=== PATIENT | male | born 1975 ===

== ENCOUNTER 2017-02-03 07:34 | Emergency (ER) | payer OTHER ==
[2017-02-03 07:46] VITALS: O2SAT 99
[2017-02-03] MEDS ORDERED: Albuterol 0.083% Inhal Sol (2.5 mg/3 mL) UD INH STA (08:08)
--- NOTE | 2017-02-03 08:08 | C.PDOC ---
History Of Present Illness 41 year old patient, with a past medical history of asthma, presents to the ED complaining of sore throat, neck pain and cough for the past week. Patient also complains of a subjective fever. Patient states he had limited relief with MDI. He took no medications this morning. Patient also denies nausea, vomiting, diarrhea, or any other associated symptoms. 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 SUBJ FEVER. HO ASTHMA, LIMITED RELIEF W MDI. NO MEDS TAKEN THIS MORNING. NO OTHER ASSOC SX EXAM NARD NONTOXIC HEENT PHARYNX CLEAR; NOSE CLEAR LUNGS NEG REMAINDER NEG Time Seen by Provider: 02/03/17 07:55 Chief Complaint (Nursing): Cough, Cold, Congestion History Per: Patient History/Exam Limitations: no limitations Onset/Duration Of Symptoms: Other (1 week) Current Symptoms Are (Timing): Still Present Location Of Pain: Throat, Other (neck) Sick Contacts (Context): None Associated Symptoms: Fever, Sore Throat, Cough, Neck Pain Ear Symptoms: Bilateral: None Severity: Mild Pain Scale Rating Of: 3 Recent travel outside of the [place]: No Past Medical History Reviewed: Historical Data, Nursing Documentation, Vital Signs Vital Signs: Last Vital Signs Temp 98.9 F 02/03/17 07:44 Pulse 87 02/03/17 08:49 Resp 18 02/03/17 07:44 BP 138/78 02/03/17 07:44 Pulse Ox 99 02/03/17 08:47 Family History: States: Unknown Family Hx - Social History Hx Alcohol Use: Yes Hx Substance Use: No - Immunization History Hx Tetanus Toxoid Vaccination: No Hx Influenza Vaccination: No Hx Pneumococcal Vaccination: No Review Of Systems Except As Marked, All Systems Reviewed And Found Negative. Constitutional: Positive for: Fever ENT: Positive for: Throat Pain Respiratory: Positive for: Cough Gastrointestinal: Negative for: Nausea, Vomiting, Diarrhea Musculoskeletal: Positive for: Neck Pain Physical Exam - Physical Exam Appears: Non-toxic, No Acute Distress Skin: Warm, Dry Head: Atraumatic, Normacephalic Eye(s): bilateral: Normal Inspection, EOMI Ear(s): Bilateral: Normal Nose: Normal, No Discharge Throat: Normal, No Erythema, No Exudate Neck: Normal ROM, Supple Chest: Symmetrical Cardiovascular: Rhythm Regular Respiratory: Normal Breath Sounds, No Accessory Muscle Use, No Rales, No Rhonchi , No Wheezing Back: Normal Inspection Extremity: Normal ROM Neurological/Psych: Oriented x3 Gait: Steady ED Course And Treatment O2 Sat by Pulse Oximetry: 99 (room air) Pulse Ox Interpretation: Normal - Radiology CXR: Interpreted by Me CXR Interpretation: Yes: No Acute Disease Disposition Counseled Patient/Family Regarding: Studies Performed, Diagnosis, Need For Followup, Rx Given - Disposition Referrals: [facility] [Outside] [facility] [Outside] Disposition: HOME/ ROUTINE Disposition Time: 08:46 Condition: IMPROVED Prescriptions: Albuterol HFA [Ventolin HFA 90 mcg/actuation (8 g)] 1 puff IH Q4 #1 inhaler Benzonatate [Tessalon Perles] 200 mg PO TID PRN #15 sgl PRN Reason: Cough predniSONE [Prednisone] 60 mg PO DAILY #12 tab Instructions: Asthma (ED) Forms: Work Excuse Print Language: BENGALI - Clinical Impression Clinical Impression: Asthma exacerbation - Scribe Statement The provider has reviewed the documentation as recorded by the Scribe Kaila Perez Provider Attestation: All medical record entries made by the Scribe were at my direction and personally dictated by me. I have reviewed the chart and agree that the record accurately reflects my personal performance of the history, physical exam, medical decision making, and the department course for this patient. I have also personally directed, reviewed, and agree with the discharge instructions and disposition.
[2017-02-03] MEDS ORDERED: Albuterol 0.083% Inhal Sol (2.5 mg/3 mL) UD ONE (09:08)
[2017-02-03 09:31] VITALS: BP 136/76; PULSE 92; RESP 16; TEMP 98.7
--- NOTE | 2017-02-03 12:22 | RAD ---
HISTORY: COUGH COMPARISON: None. TECHNIQUE: Chest PA and lateral FINDINGS: LUNGS: Increased interstitial markings compatible with lower airways disease. No discrete pulmonary infiltrates. PLEURA: No significant pleural effusion identified. No pneumothorax apparent. CARDIOVASCULAR: Normal. OSSEOUS STRUCTURES: No significant abnormalities. VISUALIZED UPPER ABDOMEN: Normal. OTHER FINDINGS: None. IMPRESSION: Prominent central pulmonary markings compatible with lower airways disease, bronchitis. No discrete infiltrates
== END 2017-02-03 09:30 | disposition home or self-care (01) ==
LOC: C.ER 07:34
DX: J45.901 Unspecified asthma with (acute) exacerbation (principal)

== ENCOUNTER 2017-08-29 11:52 | Emergency (ER) | payer SELFPAY ==
[2017-08-29 12:06] VITALS: TEMP 99.1; O2SAT 99
[2017-08-29 12:54] VITALS: BP 135/85; PULSE 78; RESP 16
--- NOTE | 2017-08-29 13:17 | C.PDOC ---
History Of Present Illness 41 year old male presents to the ED c/o decreased hearing in his right ear for the past 2 months as well as left ankle pain for the past 6 months. Patient denies left ankle pain is due to a prior injury that he can recall. Otherwise, Patient denies fever, nausea, vomit, CP, SOB, weakness, numbness. Time Seen by Provider: 08/29/17 12:12 Chief Complaint (Nursing): Lower Extremity Problem/Injury History Per: Patient History/Exam Limitations: no limitations Onset/Duration Of Symptoms: Persistent Current Symptoms Are (Timing): Still Present Recent travel outside of the [place]: No Additional History Per: Patient - Ankle/Foot Description Of Injury: Other Past Medical History Reviewed: Historical Data, Nursing Documentation, Vital Signs Vital Signs: Last Vital Signs Temp 99.1 F 08/29/17 12:03 Pulse 78 08/29/17 12:54 Resp 16 08/29/17 12:54 BP 135/85 08/29/17 12:54 Pulse Ox 99 08/29/17 13:59 - Medical History PMH: No Chronic Diseases Surgical History: No Surg Hx Family History: States: Unknown Family Hx - Social History Hx Alcohol Use: Yes Hx Substance Use: No - Immunization History Hx Tetanus Toxoid Vaccination: No Hx Influenza Vaccination: No Hx Pneumococcal Vaccination: No Review Of Systems Constitutional: Negative for: Fever, Chills ENT: Positive for: Other (Decreased hearing right ear) Cardiovascular: Negative for: Chest Pain Respiratory: Negative for: Cough, Shortness of Breath Gastrointestinal: Negative for: Nausea, Vomiting, Abdominal Pain Musculoskeletal: Positive for: Foot Pain (left ankle) Skin: Negative for: Rash Neurological: Negative for: Weakness, Numbness Physical Exam - Physical Exam Appears: Non-toxic, No Acute Distress Skin: Normal Color, Warm, Dry Head: Atraumatic, Normacephalic Eye(s): bilateral: Normal Inspection, PERRL Ear(s): Left: Normal, Right: TM Obscured By Wax Nose: No Discharge Oral Mucosa: Moist Neck: Supple Chest: Symmetrical Cardiovascular: Rhythm Regular, No Murmur Respiratory: Normal Breath Sounds, No Rales, No Rhonchi, No Wheezing Gastrointestinal/Abdominal: Soft, No Tenderness, No Guarding, No Rebound Extremity: Normal ROM, Tenderness (Left anterior ankle along medial aspect), No Calf Tenderness, Capillary Refill (Less than 2 seconds), No Deformity, Swelling (Left lateral malleolus) Pulses: Left Dorsalis Pedis: Normal, Right Dorsalis Pedis: Normal Neurological/Psych: Oriented x3, Normal Speech, Normal Cognition Gait: Steady ED Course And Treatment O2 Sat by Pulse Oximetry: 99 (On RA) Pulse Ox Interpretation: Normal - Other Rad Left ankle X-Ray X-Ray: Interpreted by Me, Viewed By Me Interpretation: IMPRESSION: Mild lateral soft tissue swelling. No acute fracture or dislocation. Medical Decision Making Medical Decision Making: right ear irrigated with saline an dhydrogen peroxide with large amt of cerumen coming out; tm appears normal after procedure. Disposition Counseled Patient/Family Regarding: Diagnosis, Need For Followup, Rx Given - Disposition Referrals: [facility] [Outside] [facility] [Outside] Disposition: HOME/ ROUTINE Disposition Time: 13:39 Condition: IMPROVED Additional Instructions: Please do not use q-tips in your ears. Wear kolby bandage for support of left ankle. elevate ankle when sitting or lying down. Take ibupforen 600 mg by mouth every 6 hours (with food) for pain if needed. Follow up in medical and podiatry clinics. 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 - Scribe Statement The provider has reviewed the documentation as recorded by the Scribmarshal Davis All medical record entries made by the Scribmarshal were at my direction and personally dictated by me. I have reviewed the chart and agree that the record accurately reflects my personal performance of the history, physical exam, medical decision making, and the department course for this patient. I have also personally directed, reviewed, and agree with the discharge instructions and disposition.
--- NOTE | 2017-08-29 13:38 | RAD ---
PROCEDURE: Left Ankle Radiographs. HISTORY: medial malleolus and anterior ankle pain COMPARISON: None FINDINGS: BONES: Bone alignment and mineralization are normal. There is no acute fracture or bone destruction JOINTS: Normal. No osteoarthritis. Ankle mortise maintained. Talar dome intact SOFT TISSUES: There is mild lateral soft tissue swelling. OTHER FINDINGS: None. IMPRESSION: Mild lateral soft tissue swelling. No acute fracture or dislocation.
== END 2017-08-29 14:17 | disposition home or self-care (01) ==
LOC: C.ER 11:52
DX: H61.21 Impacted cerumen, right ear (principal); S93.402A Sprain of unspecified ligament of left ankle, initial encounter; X58.XXXA Exposure to other specified factors, initial encounter